=== PATIENT | male | born 1980 | race Caucasian/White ===

== ENCOUNTER → 2024-01-28 | Outpatient (CLI) | payer OTHER ==
[2024-01-28 13:11] LABS: D-DIMER 0.88 mg/L FEU (0.15-0.50)
== END ==
LOC: RAD 10:54 → LAB 10:54
PROVIDERS: Nurse Practitioner Family
DX: M25.462 Effusion, left knee (principal); Z87.828 Personal history of other (healed) physical injury and trauma

== ENCOUNTER → 2024-01-30 | Outpatient (CLI) | payer OTHER | LOC: RAD 01-29 08:30 | DX: R79.1 Abnormal coagulation profile (principal) ==